=== PATIENT | male | born 1940 | race Caucasian/White ===

== ENCOUNTER → 2019-02-08 | Outpatient (CLI) | payer OTHER | LOC: CAT 13:58 | DX: Z13.6 Encounter for screening for cardiovascular disorders (principal); E78.00 Pure hypercholesterolemia, unspecified; I25.10 Atherosclerotic heart disease of native coronary artery without angina pectoris ==

== ENCOUNTER → 2019-02-28 | Outpatient (CLI) | payer OTHER ==
--- NOTE | 2019-02-28 11:22 | EXE ---
[facility] [place] [address] STRESS ECHOCARDIOGRAM Name: ALFREDITO KAPADIA Anup Room #: REG CL Carmen#: [id number] ������������� Admission: 02/28/19 ������������� Attend Phys: Ousmane Stovall, Discharge: ��� ������������� ��� Date of : 44 �������������������� �� Report #: [id number] �������� ��������������������������������������������[id number] THIS REPORT FOR: //name// APPROVED REPORT Study performed: 02/28/2019 08:04:18 Exam: Stress Echocardiogram Indication: Hyperlipidemia Patient Location: Out-Patient Stress Nurse: Prema Jama RN Room #: Echo lab 2 Status: routine Ht: 6 ft 0 in HR: 71 bpm BP: 132/82 mmHg Rhythm: NSR Medical History Allergies: No known drug allergies Cardiac Risk Factors: Hyperlipidemia, Increase calcium score Exercise History: Physically active Procedure The patient underwent an Exercise Stress Test using the Hank Protocol. Blood pressure, heart rate, and EKG were monitored. An Echocardiogram was performed by management technician in four stages in quad fashion. At peak stress, four selected images were obtained and placed side by side with resting images for comparison. Stress Test Details Stress Test: Exercise stress testing was performed using a Hank protocol. HR Resting HR: 71 bpm Max Heart Rate (APMHR): 144 bpm Max HR Achieved: 122 bpm Target HR (85% APMHR): 122 bpm % of APMHR: 84 Recovery HR: 91 bpm HR response to stress: Normal HR response to stress BP Resting BP: 132/82 mmHg Max BP: 190/980 mmHg Recovery BP: 150/74 mmHg BP response to stress: Normal blood pressure response to [facility] [address] [place] [address] STRESS ECHOCARDIOGRAM Name: ALFREDITO KAPADIA I Room #: REG [facility] [id number] ������������� Admission: 02/28/19 ������������� Attend Phys: Ousmane Stovall, Discharge: ��� ������������� ��� Date of : 44 �������������������� �� Report #: [id number] �������� ��������������������������������������������[id number] stress. ECG Clinical Reason for Termination: Maximal effort Exercise duration: 9 min 16 sec Highest Stage Achieved: Stage 4: 4.2 mph at 16% grade. Exercise capacity: 10.7 METs Overall Exercise Capacity for Age: Good Pre-Stress Echo The resting Echocardiogram showed normal left ventricular contractility with an estimated Ejection Fraction of about 50%. The resting echocardiogram demonstrated normal wall motion in all wall segments. Post-Stress Echo The stress Echocardiogram showed normal left ventricular contractility with an estimated Ejection Fraction of about 60%. Compared to rest, there were no stress-induced wall motion abnormalities. Conclusion Clinical Response: Non-ischemic Exercise Capacity: Average Stress ECG Response: Non-ischemic Stress Echo Images: Non-ischemic No prior study available for comparison. Other Information Study Quality: Good ��������������������������������������������� <ELECTRONICALLY SIGNED> ���������������������������������������� By: Maurisio Condon MD, [facility] ��������������������������������������������� 02/28/19 1122 1122 21 Maurisio Condon MD, FACC /INF
== END ==
LOC: CV 07:46
DX: E78.2 Mixed hyperlipidemia (principal)

== ENCOUNTER → 2019-06-08 | Outpatient (CLI) | payer OTHER | LOC: RAD 12:01 | DX: R05 Cough (principal) ==

== ENCOUNTER → 2019-10-18 | Outpatient (CLI) | payer OTHER | LOC: CAT 09-19 09:54 | DX: J84.10 Pulmonary fibrosis, unspecified (principal); I25.10 Atherosclerotic heart disease of native coronary artery without angina pectoris; J98.4 Other disorders of lung ==